=== PATIENT | male | born 1975 | race Caucasian/White ===

== ENCOUNTER 2017-08-13 01:34 | Emergency (ER) | payer MEDICAID ==
[2017-08-13] MEDS ORDERED: ceFAZolin(*) 2GM/D5W 50ML 50 ML IVPB ONE (02:05)
[2017-08-13] MEDS ORDERED: LIDOCAINE 2% JELLY 5 ML TUBE ONE (02:14)
[2017-08-13 02:31] LABS: PLATELET COUNT, AUTOMATED 121 K/uL (150-450)
[2017-08-13] MEDS ORDERED: IOPAMIDOL 76% 100 ML INFUS BTL 100 ML ONE (02:34)
--- NOTE | 2017-08-13 02:45 | RADIOLOGY IMAGING REPORT ---
FACILITY: [facility] [place] PATIENT NAME: Adriel Orozco : 1975 MR: [id number] V: [id number] EXAM DATE: ORDERING PHYSICIAN: KATINA PILLAI TECHNOLOGIST: Location: [facility] Patient: Adriel Orozco : 1975 Visit/Account:[id number] Date of Sevice: 08/13/2017 CHEST SINGLE AP Indication: Trauma Comparison: None Findings: Lungs: There are bilateral pneumothoraces. There is an endotracheal tube with tip in the mid trachea in good position. Mediastinum/pulmonary vasculature: Heart size and pulmonary vasculature are normal. Bones/soft tissues: Subcutaneous emphysema seen. IMPRESSION: Bilateral pneumothoraces and subcutaneous emphysema. Endotracheal tube in good position. Report Dictated By: Desean Chapman at 08/13/2017 2:39 AM Report E-Signed By: Desean Chapman at 08/13/2017 2:41 AM [id number]
[2017-08-13] MEDS ORDERED: NS(*) 0.9% 500 ML BAG 500 ML ONE (02:47)
[2017-08-13] MEDS ORDERED: LABETALOL HCL 100 MG/20ML VIAL IVP ONE (03:15)
--- NOTE | 2017-08-13 03:21 | RADIOLOGY IMAGING REPORT ---
FACILITY: [facility] [place] PATIENT NAME: Adriel Orozco : 1975 MR: [id number] V: [id number] EXAM DATE: ORDERING PHYSICIAN: KATINA PILLAI TECHNOLOGIST: Location: [facility] Patient: Adriel Orozco : 1975 Visit/Account:[id number] Date of Sevice: 08/13/2017 AP CHEST 08/13/2017 2:19 AM. INDICATION: RAD s/p ETT and bilat chest tubes COMPARISON: Same-day radiograph. FINDINGS: Unchanged endotracheal tube there appears appropriately positioned. Small-caliber chest tubes have b een removed, and there Large caliber chest tubes over the lung bases. Previously seen pneumothoraces are not well demonstra david, though the lung apices are incompletely imaged. Extensive chest wall emphysema on the left. Perez zy lung opacification may represent atelectasis and/or contusion. Heart size is normal. IMPRESSION: Bilateral pneumothoraces no longer well demonstrated after placement of a large caliber c hest tubes, though examination of the apices is limited. Report Dictated By: Ilan Granados MD at 08/13/2017 2:51 AM Report E-Signed By: Ilan Granados MD at 08/13/2017 2:54 AM WSN:[id number]
[2017-08-13] MEDS ORDERED: LISI20TA29 PO (03:30)
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
--- NOTE | 2017-08-13 03:54 | Procedure Note ---
ART Line Procedure Note Consent Signed: No ART Line Indication: Hemodynamic Monitoring ART Line Lumen: Single Line Procedure: Chlorhexidine Prep, Sterile Drapes Applied, Sterile Dressing Applied Anesthesia Used: Other (IV sedation) Complications: None Line Post Position: Sutured, Confirmed Blood Return Comment Bilateral ulnar and radial pules palpated. Right radial arterial line placed and sutured into position Chest Tube Procedure Note Reason for Chest Tube Pneumothorax after needle decompression Consent Signed: No Chest Tube Location: Right Lung Complications: None Anesthesia Used: Other (IV sedation) Chest Tube Suction: Pleura-Vac Chest Tube Secured: 0 Silk Suture Post Procedure Xray Ordered: Yes Comment Sterile technique; Ancef given pre tube placement Ultrasound Note Comment FAST Ultrasound done at the bedside:No free fluid Cardiac function normal No pericardial fluid AMY MCCLELLAND MD Aug 13, 2017 03:54
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
--- NOTE | 2017-08-13 04:59 | RADIOLOGY IMAGING REPORT ---
FACILITY: [facility] - [place] PATIENT NAME: Adriel Orozco : 1975 MR: [id number] V: [id number] EXAM DATE: ORDERING PHYSICIAN: KATINA PILLAI TECHNOLOGIST: Location: [facility] [place] Patient: Adriel Orozco : 1975 Visit/Account:[id number] Date of Sevice: 08/13/2017 COMPUTED TOMOGRAPHY CHEST, ABDOMEN AND PELVIS WITH INTRAVENOUS CONTRAST DATE OF EXAM: 08/13/2017 2:23 AM. INDICATION: trauma. COMPARISON: Same-day chest radiograph. TECHNIQUE: Contrast enhanced chest, abdomen and pelvis CT performed during the injection of 100 ml of Isovue 370. Sagittal and coronal reconstructions were performed. Dedicated reconstructions of the thoracic and lumbar spine were also provided. One of the following dose optimization techniques was utilized in the performance of this exam: Automated exposure control; adjustment of the mA and/or kV according to the patient's size; or use of an iterative reconstruction technique. Specific details can be referenced in the facility's radiology CT exam operational policy. FINDINGS: CHEST: Thyroid: Question small thyroid nodule. Thoracic inlet: No adenopathy. Extensive soft tissue emphysema in the lower neck in the upper chest . Heart and great vessels: Heart size is normal. No pericardial effusion. Grossly normal appearance of the aorta and central pulmonary arteries. Mediastinum and song: Grossly normal. Lungs and pleura: There are bilateral chest tubes in place terminating medially over the lung bases. Small volume bilateral pneumothoraces. Bilateral dependent consolidation in the lungs likely large ly representing atelectasis, no component of underlying contusion is not excluded. Endotracheal tube in place terminating in the lower 3rd of the thoracic trachea above the rosalva. Breast and axilla: Mild gynecomastia. No axillary adenopathy. ABDOMEN AND PELVIS: Liver and hepatic vasculature: Normal. Gallbladder and bile ducts: Normal. Spleen: Normal. Pancreas: Normal. Adrenals: Normal. Kidneys, ureters and bladder: Kidneys and ureters are grossly normal. Urinary bladder is partially decompressed by a Hernandez catheter. Retroperitoneum and aorta: Normal caliber aorta with mild atherosclerosis an no acute abnormality. Atherosclerosis in the iliac arteries as at least moderate. GI tract, mesentery and peritoneum: Nonacute. Normal appendix. Esophagogastric tube appears approp riately positioned. Prostate and seminal vesicles: Unremarkable. Thoracic spine: No acute alignment abnormality or fracture. Mild multilevel endplate irregularity. Spinal canal and neural foramina are grossly patent. Lumbar spine: No acute alignment abnormality or fracture. Mild multilevel spondylosis and endplate i rregularity. Remaining bones and soft tissues: No well-demonstrated acute osseous abnormality. Dedicated reconstructions of the thoracic and lumbar spine pending at the time of dictation. Remote left rib fractures. Extensive soft tissue emphysema in the chest wall likely related to recent chest tube placement. IMPRESSION: 1. Small bilateral pneumothoraces with chest tubes in place. 2. Dependent opacification bilaterally in the lungs likely primarily due to atelectasis, though unde rlying contusion is not excluded. 3. Soft tissue emphysema in the chest and neck may be related to prior chest tube placement. 4. No apparent acute osseous abnormality in the chest, abdomen and pelvis, including the thoracic an d lumbar spine. Dr. Granados discussed this case with KATINA PILLAI on 08/13/2017 4:53 AM. Report Dictated By: Ilan Granados MD at 08/13/2017 4:17 AM Report E-Signed By: Ilan Granados MD at 08/13/2017 4:56 AM WSN:[id number]
--- NOTE | 2017-08-13 05:00 | RADIOLOGY IMAGING REPORT ---
FACILITY: [facility] PATIENT NAME: Adriel Orozco : 1975 MR: [id number] V: [id number] EXAM DATE: ORDERING PHYSICIAN: KATINA PILLAI TECHNOLOGIST: Location: [facility] [place] Patient: Adriel Orozco : 1975 Visit/Account:[id number] Date of Sevice: 08/13/2017 COMPUTED TOMOGRAPHY CHEST, ABDOMEN AND PELVIS WITH INTRAVENOUS CONTRAST DATE OF EXAM: 08/13/2017 2:23 AM. INDICATION: trauma. COMPARISON: Same-day chest radiograph. TECHNIQUE: Contrast enhanced chest, abdomen and pelvis CT performed during the injection of 100 ml of Isovue 370. Sagittal and coronal reconstructions were performed. Dedicated reconstructions of the thoracic and lumbar spine were also provided. One of the following dose optimization techniques was utilized in the performance of this exam: Automated exposure control; adjustment of the mA and/or kV according to the patient's size; or use of an iterative reconstruction technique. Specific details can be referenced in the facility's radiology CT exam operational policy. FINDINGS: CHEST: Thyroid: Question small thyroid nodule. Thoracic inlet: No adenopathy. Extensive soft tissue emphysema in the lower neck in the upper chest . Heart and great vessels: Heart size is normal. No pericardial effusion. Grossly normal appearance of the aorta and central pulmonary arteries. Mediastinum and song: Grossly normal. Lungs and pleura: There are bilateral chest tubes in place terminating medially over the lung bases. Small volume bilateral pneumothoraces. Bilateral dependent consolidation in the lungs likely large ly representing atelectasis, no component of underlying contusion is not excluded. Endotracheal tube in place terminating in the lower 3rd of the thoracic trachea above the rosalva. Breast and axilla: Mild gynecomastia. No axillary adenopathy. ABDOMEN AND PELVIS: Liver and hepatic vasculature: Normal. Gallbladder and bile ducts: Normal. Spleen: Normal. Pancreas: Normal. Adrenals: Normal. Kidneys, ureters and bladder: Kidneys and ureters are grossly normal. Urinary bladder is partially decompressed by a Hernandez catheter. Retroperitoneum and aorta: Normal caliber aorta with mild atherosclerosis an no acute abnormality. Atherosclerosis in the iliac arteries as at least moderate. GI tract, mesentery and peritoneum: Nonacute. Normal appendix. Esophagogastric tube appears approp riately positioned. Prostate and seminal vesicles: Unremarkable. Thoracic spine: No acute alignment abnormality or fracture. Mild multilevel endplate irregularity. Spinal canal and neural foramina are grossly patent. Lumbar spine: No acute alignment abnormality or fracture. Mild multilevel spondylosis and endplate i rregularity. Remaining bones and soft tissues: No well-demonstrated acute osseous abnormality. Dedicated reconstructions of the thoracic and lumbar spine pending at the time of dictation. Remote left rib fractures. Extensive soft tissue emphysema in the chest wall likely related to recent chest tube placement. IMPRESSION: 1. Small bilateral pneumothoraces with chest tubes in place. 2. Dependent opacification bilaterally in the lungs likely primarily due to atelectasis, though unde rlying contusion is not excluded. 3. Soft tissue emphysema in the chest and neck may be related to prior chest tube placement. 4. No apparent acute osseous abnormality in the chest, abdomen and pelvis, including the thoracic an d lumbar spine. Dr. Granados discussed this case with KATINA PILLAI on 08/13/2017 4:53 AM. Report Dictated By: Ilan Granados MD at 08/13/2017 4:17 AM Report E-Signed By: Ilan Granados MD at 08/13/2017 4:56 AM WSN:[id number]
--- NOTE | 2017-08-13 05:00 | RADIOLOGY IMAGING REPORT ---
FACILITY: [facility] PATIENT NAME: Adriel Orozco : 1975 MR: [id number] V: [id number] EXAM DATE: ORDERING PHYSICIAN: KATINA PILLAI TECHNOLOGIST: Location: [facility] Patient: Adriel Orozco : 1975 Visit/Account:[id number] Date of Sevice: 08/13/2017 COMPUTED TOMOGRAPHY CHEST, ABDOMEN AND PELVIS WITH INTRAVENOUS CONTRAST DATE OF EXAM: 08/13/2017 2:23 AM. INDICATION: trauma. COMPARISON: Same-day chest radiograph. TECHNIQUE: Contrast enhanced chest, abdomen and pelvis CT performed during the injection of 100 ml of Isovue 370. Sagittal and coronal reconstructions were performed. Dedicated reconstructions of the thoracic and lumbar spine were also provided. One of the following dose optimization techniques was utilized in the performance of this exam: Automated exposure control; adjustment of the mA and/or kV according to the patient's size; or use of an iterative reconstruction technique. Specific details can be referenced in the facility's radiology CT exam operational policy. FINDINGS: CHEST: Thyroid: Question small thyroid nodule. Thoracic inlet: No adenopathy. Extensive soft tissue emphysema in the lower neck in the upper chest . Heart and great vessels: Heart size is normal. No pericardial effusion. Grossly normal appearance of the aorta and central pulmonary arteries. Mediastinum and song: Grossly normal. Lungs and pleura: There are bilateral chest tubes in place terminating medially over the lung bases. Small volume bilateral pneumothoraces. Bilateral dependent consolidation in the lungs likely large ly representing atelectasis, no component of underlying contusion is not excluded. Endotracheal tube in place terminating in the lower 3rd of the thoracic trachea above the rosalva. Breast and axilla: Mild gynecomastia. No axillary adenopathy. ABDOMEN AND PELVIS: Liver and hepatic vasculature: Normal. Gallbladder and bile ducts: Normal. Spleen: Normal. Pancreas: Normal. Adrenals: Normal. Kidneys, ureters and bladder: Kidneys and ureters are grossly normal. Urinary bladder is partially decompressed by a Hernandez catheter. Retroperitoneum and aorta: Normal caliber aorta with mild atherosclerosis an no acute abnormality. Atherosclerosis in the iliac arteries as at least moderate. GI tract, mesentery and peritoneum: Nonacute. Normal appendix. Esophagogastric tube appears approp riately positioned. Prostate and seminal vesicles: Unremarkable. Thoracic spine: No acute alignment abnormality or fracture. Mild multilevel endplate irregularity. Spinal canal and neural foramina are grossly patent. Lumbar spine: No acute alignment abnormality or fracture. Mild multilevel spondylosis and endplate i rregularity. Remaining bones and soft tissues: No well-demonstrated acute osseous abnormality. Dedicated reconstructions of the thoracic and lumbar spine pending at the time of dictation. Remote left rib fractures. Extensive soft tissue emphysema in the chest wall likely related to recent chest tube placement. IMPRESSION: 1. Small bilateral pneumothoraces with chest tubes in place. 2. Dependent opacification bilaterally in the lungs likely primarily due to atelectasis, though unde rlying contusion is not excluded. 3. Soft tissue emphysema in the chest and neck may be related to prior chest tube placement. 4. No apparent acute osseous abnormality in the chest, abdomen and pelvis, including the thoracic an d lumbar spine. Dr. Granados discussed this case with KATINA PILLAI on 08/13/2017 4:53 AM. Report Dictated By: Ilan Granados MD at 08/13/2017 4:17 AM Report E-Signed By: Ilan Granados MD at 08/13/2017 4:56 AM WSN:[id number]
[2017-08-13] MEDS ORDERED: PROPOFOL(*)1000 MG/100 ML VIAL 100 ML ONE ×2 (05:05→06:14)
--- NOTE | 2017-08-13 05:22 | Procedure Note ---
Central Line Procedure Note Indication for Central Line: Severe TBI; Need to monitor CVP; for medications and NS Verbal consent obtained from the Consent Signed: No Central Line Lumen: Triple Central Line Procedure: Chlorhexidine Prep, Sterile Drapes Applied, Sterile Dressing Applied, Other (Full gown, Hat, gloves and prep) Central Line Position: R Subclavian Anesthesia Used: 1% Lidocaine, Other (IV sedation) Complications: None Central Line Post Position: Sutured Comment CXR to confirm line placement done AMY MCCLELLAND MD Aug 13, 2017 05:22
[2017-08-13] MEDS ORDERED: HEPARIN FLSH (PORT) 500 UN/5ML ONE (05:26)
[2017-08-13] MEDS ORDERED: NS(*) 0.9% 250 ML BAG 250 ML ONE (05:26)
[2017-08-13] MEDS ORDERED: fentaNYL CITR 100 MCG/2 ML AMP ONE (05:26)
--- NOTE | 2017-08-13 05:41 | RADIOLOGY IMAGING REPORT ---
FACILITY: [facility] [place] PATIENT NAME: Adriel Orozco : 1975 MR: [id number] V: [id number] EXAM DATE: ORDERING PHYSICIAN: KATINA PILLAI TECHNOLOGIST: Location: [facility] [place] Patient: Adriel Orozco : 1975 Visit/Account:[id number] Date of Sevice: 08/13/2017 CHEST SINGLE AP Indication: CENTRAL LINE PLACEMENT Comparison: CT chest August 13, 2017 Findings: Lungs: There are 2 chest tubes, one each at the base of the right and left lung. There is an endotrac heal tube is tip in mid trachea in good position. Right subclavian vein central venous catheter is se en, its tip in the low superior vena cava in good position. Patchy opacities are seen throughout both lungs. There is no evidence of pneumothorax. Mediastinum/pulmonary vasculature: Heart size and pulmonary vasculature are normal. Bones/soft tissues: Subcutaneous emphysema seen along the left chest wall. IMPRESSION: 1. Bibasilar chest tubes. 2. No evidence of pneumothorax. 3. Subcutis emphysema left anterior chest wall. 4. Scattered opacities both lungs, most consistent with atelectasis. Report Dictated By: Desean Chapman at 08/13/2017 5:34 AM Report E-Signed By: Desean Chapman at 08/13/2017 5:36 AM WSN:[id number]
[2017-08-13 05:44] LABS: INR 1.12
[2017-08-13 06:05] VITALS: BP 122/77
--- NOTE | 2017-08-13 06:23 | Gen Surgery H&P BLANK ---
GENERAL SURGERY H&P BLANK Progress Note: 0620 VS remain stable Tolerated decrease in PEEP to 8 from 10 with sats still at 93% Repeat labs are still pending- initial Na was 122 Plasma is thawed and ready top transfuse PLT count was low at 125 but no platelets are available here Discussed with team handoff for transport Additional CC time 45 minutes MD [facility] AMY MCCLELLAND MD Aug 13, 2017 06:23
--- NOTE | 2017-08-13 08:06 | EKG ---
FACILITY[place] [facility] [place]IENT NAME: CLAUDETTE DAY : [id number] MR: [id number] V: [id number] EXAM DATE: ORDERING PHYSICIAN: KATINA PILLAI TECHNOLOGIST: SYLWIA Meyer Reason : TRAUMA Blood Pressure : / mmHG Vent. Rate : 087 BPM Atrial Rate : 087 BPM P-R Int : 150 ms QRS Dur : 092 ms QT Int : 388 ms P-R-T Axes : 071 076 056 degrees QTc Int : 466 ms Normal sinus rhythm Normal ECG No previous ECGs available Confirmed by SIN GALLOWAY ([id number]) on 08/13/2017 3:47:19 PM Referred By: ROSAS Confirmed By:SIN GALLOWAY
== END 2017-08-13 06:55 | disposition short-term general hospital (02) ==
LOC: ER 01:57 → EDBD 01:57 → MERGE 01:57 → ER 06:55
DX: S06.9X3A Unspecified intracranial injury with loss of consciousness of 1 hour to 5 hours 59 minutes, initial encounter (principal); J93.9 Pneumothorax, unspecified; J96.90 Respiratory failure, unspecified, unspecified whether with hypoxia or hypercapnia; I10 Essential (primary) hypertension; R09.02 Hypoxemia; F10.20 Alcohol dependence, uncomplicated
CPT/HCPCS: 31500; 32551; 36600; 70450; 71045; 71260; 72125; 72129; 72132; 74177; 80305; 81001; 82150; 82803; 83605; 83690; 84484; 85025; 85610; 86850; 86900; 86901; 93005; 94002; 94770; 99291; 99292; A7048; C1758; G0480; P9017; Q9967; 80320; 82040; 82247; 82310; 82374; 82435; 82565; 82947; 84075; 84132; 84155; 84295; 84450; 84460; 84520